=== PATIENT | female | born 1965 | race Caucasian/White ===

== ENCOUNTER → 2022-09-01 | Outpatient (REF) | payer BC | LOC: M LAB REF 17:33 | PROVIDERS: ATTEND Otolaryngology | DX: H92.11 Otorrhea, right ear (principal) ==

== ENCOUNTER → 2022-09-29 | Outpatient (CLI) | payer BC | LOC: M PLAIMG 10:13 | PROVIDERS: ATTEND Otolaryngology | DX: H92.11 Otorrhea, right ear (principal); E72.01 Cystinuria ==